=== PATIENT | female | born 1955 | race Caucasian/White ===

== ENCOUNTER 2018-11-18 09:56 | Outpatient (CLI) | payer BC, SELFPAY ==
[2018-11-18 10:41] LABS: CREATININE 0.98 mg/dL (0.55-1.02); Glucose 126 mg/dL (70-100); Potassium 3.9 mmol/L (3.5-5.1)
== END 2018-11-18 10:16 ==
PROVIDERS: PCP Family Medicine; Visit Provider Family Medicine
DX: I10 Essential (primary) hypertension (principal); E11.9 Type 2 diabetes mellitus without complications
CPT/HCPCS: 36415; 82947; 82565; 84132

== ENCOUNTER 2018-11-21 10:16 | Outpatient (CLI) | payer BC, SELFPAY ==
[2018-11-21 13:35] LABS: Hemoglobin A1C 6.5 % (4.5-6.2)
== END 2018-11-21 10:36 ==
PROVIDERS: PCP Family Medicine; Visit Provider Family Medicine
DX: E74.39 Other disorders of intestinal carbohydrate absorption (principal)
CPT/HCPCS: 36415; 83036

== ENCOUNTER 2018-11-21 10:52 | Outpatient (REF) | payer BC, SELFPAY ==
--- NOTE | 2018-11-21 10:00 | PAPFT_PTH ---
PATIENT: Corie Wellington LOC: [facility] U#:[id number] AGE/SX: 63/F ROOM: RE11/21/[address]: Romario Prince MD : 1955 BED: DIS: 11/21/2018 SPEC #: [id number] RECD: 11/21/18 13:09 STATUS: AMADOU RERen #: [id number] TANVI: 11/21/18 10:[address]: Romario Prince DEPT: [facility] Cytology RECD BY: Odette Taylor Tissues: 1 - CX/ENDOCX FOR PAP SMEARS Procedures: PAP THIN PREP/UVM Screening HPV DNA PROBE Comments: [id number]
== END 2018-11-21 11:12 ==
LOC: LBN 10:52
PROVIDERS: PCP Family Medicine; Visit Provider Family Medicine
DX: Z12.4 Encounter for screening for malignant neoplasm of cervix (principal); Z11.51 Encounter for screening for human papillomavirus (HPV)
CPT/HCPCS: 88142; 87624

== ENCOUNTER 2018-11-30 11:37 | Outpatient (CLI) | payer BC, SELFPAY ==
--- NOTE | 2018-11-30 15:54 | DI.MAMMO_ITS ---
SYMPTOMS/DIAGNOSIS: SCREENING, Z12.31, ANNUAL PHYSICAL EXAM, Z00.00 MAMMOGRAMS: Mammograms were interpreted according to the usual protocol including computer analysis with CAD system, tomosynthesis and C view imaging. The breasts are of moderate density with fairly symmetrical distribution of fibroglandular tissue. No dominant mass or clumped microcalcification is identified in either breast. Current examination is compared with previous examinations including October 2016 and there has been no gross interval change in appearance in comparison with the previous studies. CONCLUSION: No specific evidence of malignancy at this time. Routine screening examinations are suggested at yearly intervals due to the family history of breast carcinoma. Category 1, breast density category B. MQSA ASSESSMENT OF FINDINGS: Negative. Category 1. Patient will receive a letter notifying them of these results. BI-RADS category B. There are scattered areas of fibroglandular density.
== END 2018-11-30 11:57 ==
PROVIDERS: PCP Family Medicine; Visit Provider Family Medicine
DX: Z00.00 Encounter for general adult medical examination without abnormal findings (principal); Z12.31 Encounter for screening mammogram for malignant neoplasm of breast; Z80.3 Family history of malignant neoplasm of breast
CPT/HCPCS: 77063; 77067

== ENCOUNTER 2019-04-10 06:58 | Day surgery (SDC) | payer BC, SELFPAY ==
--- NOTE | 2019-04-10 06:31 | W.COLOREPORT ---
Date of service: 04/10/19 Time of Service: 08:28 Colonoscopy Report Date of procedure: 04/10/19 Pre-op diagnosis general: Colon Cancer Screening, Family history of colon cancer Post-op diagnosis procedure note: same (and small ascending colon polyp, and diverticulosis) Procedure: Colonoscopy with polypectomy Surgeon: Izzy Francisco Anesthesia proc note operative: other (General/ ASA 3/Dmitri Shea CRNA) Estimated blood loss (mL): 2 Pathology: other (Ascending polyp) Complications: None Disposition: same day Indications: Mrs. Wellington is a pleasant 64 year old female who was seen in the office for a followup colonoscopy. Her last colonoscopy was in 2013 and was normal. She has a family history of colon cancer in her brother. Risks, benefits and complications have been reviewed. Complications include but are not limited to bleeding, pain, perforation, missed small lesion/polyp, sore throat, aspiration and adverse reaction to the medications. Questions were entertained and answered to their satisfaction and they wished to proceed. No guarantees were given or implied. Prep: Miralax/Dulcolax Procedure Start Time: :28 Procedure End Time: 08:36 Retraction Time: 15 minutes Findings: One small sessile polyp in the ascending colon and moderate diverticulosis of the descending and sigmoid colon Procedure Description: After informed consent was obtained the patient was taken to the procedure room and placed in a left decubitous position. Monitors were applied and a time out was done. The patients name, date of , procedure, allergies to medications and metal in their body was reviewed. The patient was then sedated. Once sedated and comfortable a rectal exam was done. External exam was normal. Internal exam revealed a normal sphincter tone and no palpable masses. The scope was then introduced and retro-flexed. No internal hemorrhoids, masses or polyps were identified. The scope was then advanced to the cecum without difficulty. The TI and appendiceal orifice were identified. The prep was adequate. The scope was then slowly retracted over 15 minutes back into the rectum. Polyps were removed with cold forceps in the ascending colon x1. There was moderate diverticulosis of the colon noted in the descending and sigmoid colon. The scope was removed and the patient was woken up and taken back to Same day surgery in stable condition. The patient tolerated the procedure well and there were no immediate complications. Follow up: The patient should follow up in 3-5 years unless they develop changes in bowel habits or other new gastrointestinal complaints.
--- NOTE | 2019-04-10 06:33 | W.PM.DSUDISC ---
Discharge Plan Disposition Patient Disposition: HOME Condition: Good Discharge Details Reason For Visit: Colonoscopy Attending Provider: Izzy Francisco Primary Care Provider: Romario Prince Home Meds and New Rx's Prescriptions: Continued magnesium oxide 400 mg capsule 400 mg PO DAILY RF: 0 amlodipine 5 mg tablet 5 mg PO DAILY Qty: 90 RF: 3 doxazosin 4 mg tablet 4 mg PO DAILY Qty: 90 RF: 3 doxazosin 2 mg tablet 2 mg PO DAILY Qty: 90 RF: 3 labetalol 100 mg tablet 100 mg PO BID Qty: 180 RF: 3 metformin 500 mg tablet 500 mg PO BID Qty: 180 RF: 3 lisinopril 20 mg tablet 20 mg PO DAILY Qty: 90 RF: 3 aspirin [Aspirin Low-Strength] 81 MG tablet,chewable 162 mg PO HS RF: 0 cholecalciferol (vitamin D3) 1,000 unit tablet 2,000 unit PO DAILY Qty: 200 RF: 4 sennosides-docusate sodium [Senna-S] 8.6-50 mg tablet 1 tab PO BID PRNRF: 0 Discontinued polyethylene glycol 3350 17 gram/dose powder 238 g PO ONCE Qty: 238 RF: 0 bisacodyl [Dulcolax (bisacodyl)] 5 mg tablet,delayed release (DR/EC) 5 mg PO ONCE Qty: 4 RF: 0 Discharge Instructions Instructions: Colonoscopy (DC), Diverticulosis (DC) Additional Instructions: Findings: One small polyp Diverticulosis Follow up: 3-5 years Please call if you develop: fevers >101.5 Nausea or Vomiting Abdominal pain that is not transient DAY SURGERY UNIT POST ENDOSCOPY INSTRUCTIONS 1. Because there will be medication in your system for the next 24 hours, you may feel a little sleepy. Your coordination will be affected. Therefore: a. Do not drive or operate dangerous equipment for 24 hours. b. Do not drink alcohol beverages for 24 hours (not even beer). c. Plan to go home and rest for the day. 2. Generally there are no restrictions on your activity after a day or so has gone by, but you may feel a bit fatigued for a few days. 3 After you arrive home you may have a light meal and return to a normal diet as you can tolerate it without feeling sick to your stomach. 4. After surgery, you may feel pain or discomfort. This should be only transient, but if it persists please contact your doctor. 5. If there are any questions regarding the findings of your procedure, please feel free to contact your doctor. 6. If you are unable to contact your doctor with a problem, contact the hospital at [phone]. 7. Continue all your regular medications unless directed otherwise. I understand the above instructions and have no questions. Signature of Patient or Responsible Adult Escort Date/Time Name of Responsible Adult Escort Signature of Nurse Date/Time Activity:: Activity as Tolerated Diet:: High Fiber diet Discharge Orders Discharge Orders: Discharge Order (Routine); Ordered 04/10/19 Ordered By: Izzy Francisco DS: Diagnosis Discharge Diagnosis (1) S/P colonoscopy: Status: Acute (2) Diverticulosis: Status: Acute
--- NOTE | 2019-04-10 07:19 | W.PM.HP.N ---
Date of service: 04/10/19 Time of Service: : Assessment and Plan Assessment and plan (1) Encounter for screening colonoscopy: Status: Acute Assessment and plan: P\\ Colonoscopy under sedation Risks, benefits and complications have been reviewed. Complications include but are not limited to bleeding, pain, perforation, missed small lesion/polyp, sore throat, aspiration and adverse reaction to the medications. Questions were entertained and answered to their satisfaction and they wished to proceed. No guarantees were given or implied. History of Present Illness Narrative: 63 y/o female with history of HTN, Type 2 DM and hypothyroidism presents for colonoscopy screening pre-op. Her last screening was in 2013, which was remarkable for sigmoid diverticulosis. She reports a family history of colon cancer in her brother. She reports changes in bowel habits to include diarrhea since starting Metformin a few days ago. She denies bloody or black tarry stools, abdominal pain, or constipation. She denies constitutional symptoms. Denies use of marijuana or any other recreational or illegal drugs. She denies chest pain, palpitations, dyspnea or dyspnea with exertion. She denies prior history or family history of adverse reactions or complications with anesthesia. No changes in her health since she was last seen Review of Systems Cardiovascular Cardiovascular: Denies chest pain, Denies chest pain at rest, Denies palpitations, Denies dyspnea and Denies dyspnea on exertion Respiratory Respiratory: Denies cough, Denies dyspnea and Denies dyspnea on exertion Endocrine Endocrine: Denies palpitations [facility] Medical History Benign essential hypertension (Active 01/06/13) Cerebrovascular disease (Active) Depression (Acute 01/12/13) Diabetes mellitus (Chronic) Eczema (Acute 01/12/13) Family history of malignant neoplasm of breast (Acute 09/03/14) Hypothyroidism (Acute 01/12/13) Lacunar infarction (Acute 01/12/13) Malignant hypertension (Inactive 01/12/13) hypertensive encephalopathy Obesity (Acute 01/12/13) Continued weight loss encouraged Add Metformin to help with both sugar and weight Pancreatic cyst (Acute) stable on MRI at [facility] – [place], [place] Vitamin D deficiency (Acute 09/03/14) Surgical History MAXILLARY SINUS CYSTECTOMY (~1995) S/P colonoscopy (Acute ~04/10/19) 2014- diverticulosis Family History Mother Essential hypertension Heart disease Hyperlipidemia Neoplasm BREAST Stroke Father Essential hypertension Heart disease Hyperlipidemia Sister No problems noted. Sister Essential hypertension Neoplasm BREAST Sister Essential hypertension Brother Essential hypertension Heart disease Hyperlipidemia Neoplasm COLON Grandfather Heart disease Grandfather Heart disease Grandmother Heart disease Grandmother Heart disease Social History Smoking/Tobacco Use Status: Never Drug use: Never Meds Home Medications and Allergies Home Medications Medication Instructions Recorded Confirmed Type aspirin [Aspirin Low-Strength] 162 mg PO HS tab-cap 06/14/13 02/23/19 History cholecalciferol (vitamin D3) 1,000 2,000 unit PO DAILY #200 tab-cap 08/25/18 02/23/19 Rx unit (25 mcg) tablet amlodipine 5 mg tablet 5 mg PO DAILY #90 tab 11/21/18 02/23/19 Rx doxazosin 2 mg tablet 2 mg PO DAILY #90 tab 11/21/18 02/23/19 Rx doxazosin 4 mg tablet 4 mg PO DAILY #90 tab 11/21/18 02/23/19 Rx labetalol 100 mg tablet 100 mg PO BID #180 tab 11/21/18 02/23/19 Rx magnesium oxide 400 mg PO DAILY cap 11/21/18 02/23/19 History metformin 500 mg tablet 500 mg PO BID #180 tab 11/21/18 02/23/19 Rx lisinopril 20 mg tablet 20 mg PO DAILY #90 tab 02/20/19 02/23/19 Rx bisacodyl 5 mg tablet,delayed 5 mg PO ONCE #4 tab 02/23/19 02/23/19 Rx release polyethylene glycol 3350 17 238 g PO ONCE #238 gm 02/23/19 02/23/19 Rx gram/dose oral powder sennosides 8.6 mg-docusate sodium 1 tab PO BID PRN 02/23/19 02/23/19 History 50 mg tablet Allergies Allergy/AdvReac Type Severity Reaction Status Date / Time Sulfa (Sulfonamide Allergy Unknown Verified 02/23/19 09:08 Antibiotics) Exam HENKY Head: normocephalic and atraumatic Resp Effort & Inspection: normal respiratory effort Auscultation: clear to auscultation bilaterally Cardio Rate: regular rate Rhythm: regular rhythm Heart Sounds: no gallops, no murmurs and no rubs GI Inspection: normal to inspection Palpation: soft and no hepatosplenomegaly
[2019-04-10 07:23] VITALS: BP 165/101; PULSE 89; RESP 16; TEMP 36.5; O2SAT 99
[2019-04-10] MEDS: Lactated Ringers 1,000 ML 80 ML IV (07:58)
--- NOTE | 2019-04-10 08:40 | BOWEL_PTH ---
PATIENT: Corie Wellington LOC: [facility] U#:[id number] AGE/SX: 64/F ROOM: RE04/10/[address]: Izzy Francisco MD : 1955 BED: DIS: 04/10/2019 SPEC #: [id number] RECD: 04/10/19 12:46 STATUS: AMADOU REQ #: [id number] TANVI: 04/10/19 08:[address]: Izzy Francisco DEPT: Surgical Specimen RECD BY: Odette Taylor ENTERED: 04/10/19 12:46 SP TYPE: Bowel OTHR DR: Romario Prince MD Tissues: 1 - BIOPSY BOWEL Procedures: GROSS AND MICRO LEVEL 4 Comments: [id number]
[2019-04-10 09:27] VITALS: BP 125/63; PULSE 65; RESP 16; TEMP 36.6; O2SAT 96
== END 2019-04-10 09:55 | disposition home or self-care (01) ==
LOC: SUR 06:58
PROVIDERS: PCP Family Medicine; Visit Provider Surgery
PROC: 0DJD8ZZ Inspection of Lower Intestinal Tract, Via Natural or Artificial Opening Endoscopic (ICD-10-PCS; CPT 45378; principal; 2019-04-10 08:30)
DX: Z12.11 Encounter for screening for malignant neoplasm of colon (principal); Z80.0 Family history of malignant neoplasm of digestive organs; D12.2 Benign neoplasm of ascending colon; K57.30 Diverticulosis of large intestine without perforation or abscess without bleeding; I10 Essential (primary) hypertension; E11.9 Type 2 diabetes mellitus without complications
CPT/HCPCS: 45380; 88305; NC

== ENCOUNTER 2019-07-31 08:22 | Outpatient (CLI) | payer BC, SELFPAY ==
[2019-07-31 10:43] LABS: Calculated LDL 145 mg/dL; Cholesterol 221 mg/dL (<200); HDL Cholesterol 60 mg/dL (40-60); Triglyceride 80 mg/dL (<150)
[2019-07-31 14:40] LABS: Hemoglobin A1C 6.2 % (3.8-5.6)
== END 2019-07-31 08:42 ==
PROVIDERS: PCP Family Medicine; Visit Provider Family Medicine
DX: Z00.00 Encounter for general adult medical examination without abnormal findings (principal); Z11.9 Encounter for screening for infectious and parasitic diseases, unspecified; Z13.220 Encounter for screening for lipoid disorders
CPT/HCPCS: 36415; 80061; 83036

== ENCOUNTER 2021-07-14 20:47 | Outpatient (REF) | payer OTHER, SELFPAY ==
[2021-07-14 22:20] LABS: COMMENT (LAB VIEW ONLY) 231.08 mg/dL; Microalb ug/mg Crea 6.2 ug/mg Cr
[2021-07-14 22:29] LABS: ALT 23 U/L (14-59); AST 9 U/L (15-37); Albumin 3.9 g/dL (3.4-5.0); Alkaline Phosphatase 79 U/L (46-116); Anion Gap 8.5 mmol/L (3-11); BUN 18 mg/dL (7-18); Bilirubin, Total 0.5 mg/dL (0.2-1.0); CO2 28.5 mmol/L (21.0-32.0); CREATININE 0.9 mg/dL (0.55-1.02); Calcium 9.1 mg/dL (8.5-10.1); Calculated LDL 144 mg/dL (<100); Chloride 104 mmol/L (98-107); Cholesterol 223 mg/dL (<200); Glucose 113 mg/dL (74-106); HDL Cholesterol 56 mg/dL (40-60); Potassium 4.5 mmol/L (3.5-5.1); Sodium 141 mmol/L (136-145); TSH (W/Ref FT4) 2.94 uIU/mL (0.36-3.74); Total Protein 6.6 g/dL (6.4-8.2); Triglyceride 115 mg/dL (<150)
[2021-07-14 22:46] LABS: Hemoglobin A1C 6.4 % (<5.7)
== END 2021-07-14 20:48 | disposition home or self-care (01) ==
LOC: LBN 20:47
PROVIDERS: PCP Family Medicine; Visit Provider Family Medicine
DX: I10 Essential (primary) hypertension (principal); E11.9 Type 2 diabetes mellitus without complications
CPT/HCPCS: 80053; 80061; 82043; 82570; 83036; 84443

== ENCOUNTER 2021-10-07 01:45 | Outpatient (CLI) | payer OTHER, SELFPAY ==
--- NOTE | 2021-10-07 06:45 | DI.MAMMO_ITS ---
Exam(s) MAMMO SCREENING EXAM: MAMMO SCREENING CLINICAL HISTORY: screening,z12.39. TECHNIQUE: Bilateral full field digital CC and MLO mammographic images were obtained with 3D tomosyn thesis and utilizing computer aided detection (CAD). COMPARISON: Prior mammograms were reviewed, the most recent being November 2018. FINDINGS: There has been no significant change in the appearance and distribution of the fibroglandular tissue. Asymmetric density located centrally in the left breast on the CC view is benign-appearing on 3D imag ing and unchanged from prior studies. Benign-appearing nodule in right breast is unchanged from prior studies most probably a benign intram ammary lymph node. No new spiculated masses nor malignant-appearing microcalcification groups in either breast. There is no significant architectural distortion nor skin thickening-retraction. IMPRESSION: No radiographic evidence of malignancy. BI-RADS Category 1 - Negative Breast Density - Category B - Scattered areas of fibroglandular density Breast density Category C or D implies that the patient has dense breast tissue. Dense breast tissue can make it harder to find cancer on a mammogram. Dense breast tissue is also associated with an incr eased risk of breast cancer. This information about the result of the mammogram report was provided to the patient to raise their awareness. Use this report when you speak with the patient about their risks for breast cancer, which includes their family history. At that time, you may recommend additional screening tests (Ultrasoun d or MRI) as these tests may add significant information. A negative radiographic report should not delay biopsy if a dominant or clinically suspicious mass is present. Up to ten percent of cancers are not identified on mammography. A negative report may reinforce clinical impression. Adenosis and dense breasts may obscure an underlying neoplasm. False positive reports average 6 to 10%. Patient will receive a letter notifying them of these results.
== END 2021-10-07 02:05 ==
PROVIDERS: PCP Family Medicine; Visit Provider Family Medicine
DX: Z12.31 Encounter for screening mammogram for malignant neoplasm of breast (principal)
CPT/HCPCS: 77063; 77067

== ENCOUNTER 2022-07-28 10:17 | Outpatient (CLI) | payer OTHER, SELFPAY ==
[2022-07-28 12:39] LABS: ALT 23 U/L (14-59); AST 14 U/L (15-37); Albumin 3.7 g/dL (3.4-5.0); Alkaline Phosphatase 83 U/L (46-116); Bilirubin, Direct 0.1 mg/dL (0.0-0.2); Bilirubin, Total 0.7 mg/dL (0.2-1.0); Calculated LDL 145 mg/dL (<100); Cholesterol 227 mg/dL (<200); Estimated GFR 62.52 (mL/min/1.73m2); HDL Cholesterol 58 mg/dL (40-60); Potassium 4.7 mmol/L (3.5-5.1); Total Protein 7.3 g/dL (6.4-8.2); Triglyceride 122 mg/dL (<150)
== END 2022-07-28 10:18 | disposition home or self-care (01) ==
LOC: LOS 10:18
PROVIDERS: PCP Family Medicine; Referring Provider Family Medicine; Visit Provider Family Medicine
DX: I10 Essential (primary) hypertension (principal); E78.5 Hyperlipidemia, unspecified; G72.89 Other specified myopathies
CPT/HCPCS: 36415; 80061; 80076; 82565; 84132

== ENCOUNTER 2023-01-27 14:22 | Outpatient (REF) | payer OTHER, SELFPAY ==
[2023-01-27 14:23] LABS: COMMENT (LAB VIEW ONLY) 302.69 mg/dL; Microalb ug/mg Crea 3.5 ug/mg Cr
== END 2023-01-27 14:23 | disposition home or self-care (01) ==
LOC: LBN 14:22
PROVIDERS: PCP Family Medicine; Visit Provider Family Medicine
DX: E11.9 Type 2 diabetes mellitus without complications (principal)
CPT/HCPCS: 82043; 82570

== ENCOUNTER 2023-09-08 09:05 | Outpatient (CLI) | payer OTHER, SELFPAY ==
[2023-09-08 12:40] LABS: Creatine Kinase 64 U/L (26-192); Potassium 4.5 mmol/L (3.5-5.1)
[2023-09-08 13:00] LABS: Calculated LDL 149 mg/dL (<100); Cholesterol 233 mg/dL (<200); HDL Cholesterol 58 mg/dL (40-60); Triglyceride 134 mg/dL (<150)
== END 2023-09-08 09:06 | disposition home or self-care (01) ==
LOC: LOS 09:05
PROVIDERS: PCP Family Medicine; Referring Provider Family Medicine; Visit Provider Family Medicine
DX: G72.89 Other specified myopathies (principal); I10 Essential (primary) hypertension; E78.5 Hyperlipidemia, unspecified
CPT/HCPCS: 36415; 80061; 82550; 84132

== ENCOUNTER → 2023-10-04 02:48 | Outpatient (CLI) | payer OTHER, SELFPAY ==
--- NOTE | 2023-10-04 06:15 | DI.US_ITS ---
APPROVED REPORT EXAM: Comprehensive 2D, Doppler, and color-flow Echocardiogram Patient Location: Out-Patient Sales And Service Agent: Martha Krause RDCS (AE) Indications: Reassess aortic stenosis, Dilated ascending arota, HTN Other Information Study Quality: Adequate Conclusion Mild concentric left ventricular hypertrophy. Ejection fraction is 60%. Wall motion is normal. Vania stolic function is normal for age Normal right ventricular size and function Both atria are normal in size Aortic valve calcified. There is moderate aortic stenosis. Peak gradient is 41, mean 23 mm Hg. calc ulated aortic valve area is 1.2 cm2. There is trace aortic regurgitation Mitral annular calcification, mild mitral regurgitation Ascending aorta measures 3.85 cm Wall motion Left Ventricle The left ventricle is normal size. The left ventricular systolic function is normal. The left ventric ular ejection fraction is within the normal range. Mild concentric left ventricular hypertrophy. Ther e is normal LV segmental wall motion. Left ventricular filling pattern is normal for age. There is no ventricular septal defect visualized. LVEF is 60%. Right Ventricle The right ventricle is normal size. The right ventricular systolic function is normal. Atria The left atrium size is normal. The right atrium size is normal. The interatrial septum is intact wit h no evidence for an atrial septal defect. Aortic Valve Aortic valve is calcified. Number of aortic valve leaflets could not be assessed. Moderate aortic jose maria nosis. Peak aortic valve gradient is 41.43_mmHg. Highest mean aortic valve gradient is 22.78mmHg. Solomon culated EREN by the continuity equation is 1.2_cm2. Trace aortic regurgitation. Mitral Valve Mild mitral annular calcification. No evidence of mitral valve stenosis. Mild mitral regurgitation. Tricuspid Valve The tricuspid valve is normal in structure. There is no tricuspid valve stenosis. Trace tricuspid reg urgitation. Unable to assess PA pressure. Pulmonic Valve The pulmonary valve is normal in structure. There is no pulmonic valvular stenosis. There is no pulmo james valvular regurgitation. Great Vessels The aortic root is normal in size. The ascending aorta is mildly dilated. Aortic arch is normal in ca liber. IVC is normal in size and collapses >50% with inspiration. Pericardium There is no pericardial effusion. 2D Dimensions IVSD d PLAX 1.20 cm F: 0.6-1.0 Ao Root d 3.18 cm F: 2.7 - 3.3 LVPW d PLAX 1.21 cm F: 0.6 - 1.0 Ao Asc Diam d 3.85 cm F: 2.3 - 3.1 LVID d PLAX 4.33 cm F: 3.8 - 5.2 LVDs 2.98 cm F: 2.2 - 3.5 LV EF Teichholz 59.1 % FS 31.09 % LV EDV (Teich) 84.5 mL LV ESV (Teich) 34.6 mL M-Mode TAPSE 2.15 cm (M/F) >1.7 Auto EF LV EDV A4C 97.7 mL LV EDV A2C 95.4 mL LV EDV BP 98.7 mL LV ESV A4C 41.8 mL LV ESV A2C 40.6 mL LV ESV BP 41.2 mL LVEF(%) A4C 57.2 % LVEF(%) A2C 57.5 % LVEF(%) BP 58.2 % LV SV A4C 55.9 ml LV SV A2C 54.8 ml LV SV BP 57.4 ml LV CO A4C 3.0 L/min LV CO A2C 3.4 L/min LV CO BP 3.2 L/min HR A4C 54.05 BPM HR A2C 62.72 BPM LV EDV Index (BP) LV Strain Long Pk Overal Avg (s) 16.00 RV Strain Global Peak Long. Strain A4C 19.88 Global Peak Long. Strain A4C FW 24.68 LA Volume LA Length A4C 4.8 cm LA Length A2C 4.9 cm LA Area A4C s 17.39 cm2 LA Area A2C s 15.51 cm2 LA Vol A4C A-L 53.42 mL LA Vol A2C A-L 41.58 mL LA Vol Biplane A-L 47.6 mL LA Vol/BSA A4C A-L LA Vol/BSA A2C A-L LA Vol/BSA BP A-L 23.0 mL/m2 LA Vol A4C MOD 46.0 mL LA Vol A2C MOD 38.5 mL LA Vol BP MOD 42.5 mL RA Volume RA Area A4C 10.0 cm2 RA ESV A4C (A-L) 20.5mL RA Vol/BSA A4C A-L RA Length A4C 4.1 cm RA ESV A4C (MOD) 20.0mL LV Diastology MV E' medial 0.062 (>0.07 m/s) MV E Vmax 1.12 (0.4-1.3 m/s) MV E/E' MED 17.99 (<14) MV A Vmax 1.30 (0.4-1.3 m/s) MV E' lateral 0.087 (>0.1 m/s) E/A Ratio 0.9 MV E/E' LAT 12.85 (<14) MV E' Average 0.075 m/s MV E/E'(average) 14.99 Aortic Valve AoV Vmax 3.22 m/s LVOT Vmax 1.21 m/s AoV Peak Grad 52.8 mmHg LVOT Peak Grad 5.9 mmHg AoV Area (Vmax) 1.18 cm2 LVOT VTI 0.293 m AoV VTI 0.769 m LVOT Mean Grad 3.6 mmHg AoV Mean Jordy. 2.19 m/s LVOT SV 91.44 mL AoV Mean Grad 22.8 mmHg LVOT Diam s 1.95 cm AoV Area (VTI) 1.19 cm2 AV Regurg Peak Gr. 64.25 mmHg Velocity Ratio 0.38 AR Decel Baker 0.9m/sec2 AR DT 4288 msec AR PHT 1243 msec AR Vmax 4.01 m/s Mitral Valve MV DT 304 (160-240 msec) MV Vmax TIPS 1.33 m/s MV Mean Grad 2.9 (<2mmHg) MV VTI 0.467 m Pulmonary Valve PV Vmax 1.15 (0.5-1.5 m/s) RVOT Vmax 0.93 m/s PV Peak Grad 5.3 mmHg RVOT Peak Gr. 3.5 mmHg PV Mean Jordy 0.88 m/s RVOT VTI 0.211 m PV Mean Grad 3.4 mmHg RVOT Mean Gr. 2.1 mmHg Tricuspid Valve RA Pressure 3.00 mmHg TV S' 0.13 m/s
== END ==
PROVIDERS: PCP Family Medicine; Visit Provider Family Medicine
DX: Z12.31 Encounter for screening mammogram for malignant neoplasm of breast (principal); I10 Essential (primary) hypertension
CPT/HCPCS: 77063; 77067; 93306

== ENCOUNTER 2024-03-08 13:49 | Outpatient (REF) | payer OTHER, SELFPAY ==
[2024-03-08 18:45] LABS: COMMENT (LAB VIEW ONLY) 197.01 mg/dL; Microalb ug/mg Crea 6.9 ug/mg Cr
== END 2024-03-08 13:50 | disposition home or self-care (01) ==
LOC: LBN 13:49
PROVIDERS: PCP Family Medicine; Visit Provider Family Medicine
DX: E11.9 Type 2 diabetes mellitus without complications (principal); E66.9 Obesity, unspecified
CPT/HCPCS: 82043; 82570

== ENCOUNTER 2024-04-09 09:52 | Day surgery (SDC) | payer OTHER, SELFPAY ==
--- NOTE | 2024-04-08 07:15 | W.PM.DSUDISC ---
Date of service: 04/09/24 Time of Service: 11:51 Discharge Plan Disposition Patient Disposition: Home Condition: Good Discharge Details Reason For Visit: screening colonoscopy Attending Provider: Keven Trejo Primary Care Provider: Romario Prince Home Meds and New Rx's Prescriptions: Continued magnesium oxide 400 mg capsule 400 mg PO DAILY cholecalciferol (vitamin D3) 1,000 unit tablet 2,000 unit PO DAILY Qty: 200 4RF Rx Instructions: take 2 pills daily atorvastatin 10 mg tablet 10 mg PO DAILY Qty: 90 3RF Jardiance 10 mg tablet 10 mg PO DAILY Qty: 90 3RF doxazosin 2 mg tablet 2 mg PO DAILY Qty: 90 3RF Rx Instructions: take with a 4 mg tab each day labetalol 100 mg tablet 100 mg PO BID Qty: 180 3RF amlodipine 5 mg tablet 5 mg PO DAILY Qty: 90 3RF lisinopril 30 mg tablet See Rx Instructions .ROUTE .COMPLEX Qty: 90 3RF Dose Instruction: TAKE ONE TABLET BY MOUTH ONE TIME DAILY Rx Instructions: TAKE ONE TABLET BY MOUTH ONE TIME DAILY doxazosin 4 mg tablet 4 mg PO DAILY Qty: 90 3RF Rx Instructions: take with a 2 mg tab each day metformin 500 mg tablet 500 mg PO BID Qty: 180 3RF Discontinued bisacodyl [Dulcolax (bisacodyl)] 5 mg tablet,delayed release (DR/EC) 5 mg PO ONCE Qty: 4 0RF Rx Instructions: Take per colonoscopy instructions provided by ordering providers office polyethylene glycol 3350 17 gram/dose powder 17 g PO ONCE Qty: 238 0RF Rx Instructions: Take per colonoscopy instructions provided by ordering providers office Discharge Instructions Instructions: Colon polyps, Diverticulosis Additional Instructions: Corie, we are able to complete your colonoscopy today without any difficulty at all. Hopefully you are comfortable during the procedure. I did find and remove a single polyp today. Similar to your previous experience, this will be sent off for testing, as sometimes the nature of polyps influences the timing of the next colonoscopy. Incidentally, you also have some diverticulosis. This was noted on your previous colonoscopy as well. I hope it never bothers you, but I will certainly attach some information here regarding basic approaches to diverticular disease. If you have any questions at all, please do not hesitate to call or ask at any point. 1. If tolerated, consume a soft, low fiber diet for 1-2 days. 2[address] Do not drive, drink alcohol, operate machinery, make critical decisions, or do activities that require coordination or balance for 24 hours. 3. Because air was put into your colon during the procedure, expelling air from your rectum (passing gas or farting) is normal. 4. You may not have a bowel movement for 1-3 days because of the colonoscopy prep. This is normal. 5. Go directly to the emergency room if you notice any of the following: Develop chills (warm to touch), or if you have a thermometer and your temperature is above 101 Difficulty breathing or difficultly swallowing Persistent vomiting Severe abdominal pain, other than gas cramps Severe chest pain Black, tarry stools Any bleeding ? exceeding one tablespoon 6. Call your physician if the site where your intravenous was started becomes red, swollen, painful, and warm to touch. 7. Your physician has reviewed your pre-procedure medications. Please continue to take those medications as previously ordered. You will be given specific information/education regarding any changes to your medications before leaving. Activity:: Activity as Tolerated Diet:: As Tolerated Discharge Orders Discharge Orders: Discharge Order (Routine); Ordered 04/08/24 Ordered By: Keven Trejo DS: Diagnosis Discharge Diagnosis (1) Encounter for screening colonoscopy: Status: Acute Asessment and Plan: Follow-up on polypectomy results
--- NOTE | 2024-04-08 07:17 | W.COLOREPORT ---
Date of service: 04/09/24 Time of Service: 11:53 Colonoscopy Report Date of procedure: 04/09/24 Pre-op diagnosis general: screening colonoscopy Post-op diagnosis procedure note: other (Diverticulosis, colon polyp) Procedure: colonoscopy with polypectomy Surgeon: Keven Trejo Anesthesia Type: General:No Airway Estimated blood loss (mL): 5 Pathology: other (0.5 cm pedunculated polyp at 20 cm) Complications: None Disposition: same day Indications: Croie is a 69 year old woman with a history of sessile serrated adenoma as well as a family history of colon cancer who needs her next screening colonoscopy Prep: Miralax/Dulcolax Procedure Start Time: 11:10 Procedure End Time: 11:23 Retraction Time: 9 Findings: Sigmoid diverticulosis, 0.5 cm polyp at 20 cm Procedure Description: After the induction of anesthesia, and with the patient in left lateral decubitus position, I began by performing an external anorectal exam.? Perineum and skin were normal, as was the anal verge.? There was no evidence of external hemorrhoids.? Next, I performed a digital rectal exam.? I did not appreciate any abnormal findings.? Next, I advanced a colonoscope into the rectal vault.? I performed retroflexion.? This appeared normal.? Using insufflation, I then advanced the colonoscope beyond the rectal folds and into the sigmoid colon before advancing towards the cecum.? The scope was noted to be in the cecum by identification of the ileocecal valve and appendiceal orifice.? I then began withdrawing the colonoscope using repeated irrigation as necessary for full evaluation of the colonic mucosa. There was left-sided and sigmoid diverticulosis. Around 20 cm from the anal verge I identified a 0.5 cm polyp. ?It appeared pedunculated in character. ?I was able to remove this with a cold snare polypectomy. ?I examined the site, and there was minimal bleeding. ?Once this was completed, I continued to withdraw the scope and examine the remainder of the colonic mucosa.?Once the scope was withdrawn to the level of the rectum, great care was taken to examine portions of the rectal folds.? Finally, the scope was withdrawn and the patient was brought to the same-day surgery recovery unit as the anesthetic wore off. ?The findings and instructions were shared with the patient prior to discharge. [place] Bowel Prep [place] Bowel Prep Right Colon: 3 Left Colon: 3 Transverse Colon: 3 Total Score: 9
[2024-04-09 10:17] VITALS: BP 124/79; PULSE 109; RESP 20; TEMP 36.4; O2SAT 98
[2024-04-09] MEDS: Lactated Ringers 1,000 ML 80 ML IV (10:30)
--- NOTE | 2024-04-09 10:43 | W.ANESPRE ---
General Info Date of Service Date Performed: 04/09/24 Height: 5 ft 0.75 in Weight: 116.573 kg Body Mass Index (BMI): 48.9 Surgical Procedure: Operation Date: 04/09/24 11:20 Proposed Procedure Side Surgeon ky Trejo MD Meds Allergies and Home Medications Allergies Allergy/AdvReac Type Severity Reaction Status Date / Time Sulfa (Sulfonamide Allergy Unknown Verified 07/28/22 10:00 Antibiotics) Home Medication ?Medication ?Instructions ?Recorded cholecalciferol (vitamin D3) 25 2,000 unit PO DAILY #200 tab-caps 08/25/18 mcg (1,000 unit) tablet magnesium oxide 400 mg PO DAILY 11/21/18 atorvastatin 10 mg tablet 10 mg PO DAILY #90 tabs 09/08/23 empagliflozin 10 mg tablet 10 mg PO DAILY #90 tabs 11/30/23 (Jardiance) amlodipine 5 mg tablet 5 mg PO DAILY #90 tabs 12/31/23 doxazosin 2 mg tablet 2 mg PO DAILY #90 tabs 12/31/23 doxazosin 4 mg tablet 4 mg PO DAILY #90 tabs 12/31/23 labetalol 100 mg tablet 100 mg PO BID #180 tabs 12/31/23 lisinopril 30 mg tablet See Rx Instructions .Route 12/31/23 .COMPLEX #90 tabs metformin 500 mg tablet 500 mg PO BID #180 tabs 03/29/24 Current Visit Medications: Current Medications Generic Name Dose Route Start Last Admin Trade Name Freq PRN Reason Stop Dose Admin Ringer's Solution 1,000 mls @ 80 mls/hr 04/09/24 06:00 04/09/24 10:30 IV 05/06/24 23:59 80 mls/hr INFUSION SUHAIL Administration IV Miscellaneous Supplies 1 each 04/09/24 06:00 Iv Access IV 05/06/24 23:59 DIRECTED SUHAIL Ondansetron HCl 4 mg 04/08/24 07:18 Ondansetron 4 Mg/2 Ml Vial IVP 05/08/24 07:17 Q4H PRN PRN Nausea / Vomiting Sodium Chloride 0 ml 04/09/24 06:00 Normal Saline Flush 10 Ml Syr IV 05/06/24 23:59 PRN PRN Sodium Chloride 0 ml 04/09/24 06:00 Normal Saline 10 Ml Vial IJ 05/06/24 23:59 DIRECTED PRN Sterile Water 0 ml 04/09/24 06:00 Water,Injection,Sterile 10 Ml Vial IJ 05/06/24 23:59 DIRECTED PRN PFSH Active Problems Active Problems: Problem Status Onset Code Encounter for screening colonoscopy Acute Z12.11 Hyperlipidemia associated with type 2 diabetes mellitus Acute E11.69, E78.5 Knee pain, bilateral Acute M25.561, M25.562 Heart murmur Acute R01.1 Essential hypertension Acute I10 Cerebrovascular disease Active I67.9 Vitamin D deficiency Acute 09/03/14 E55.9 Obesity Acute 01/12/13 E66.9 Pancreatic cyst Acute K86.2 Lacunar infarction Acute 01/12/13 I63.81 Hypothyroidism Acute 01/12/13 E03.9 Eczema Acute 01/12/13 L30.9 Family history of malignant neoplasm of breast Acute 09/03/14 Z80.3 Depression Acute 01/12/13 F32.9 Diabetes mellitus Chronic E11.9 Medical History Medical History (Updated 04/08/24 @ 07:15 by Keven Trejo MD) Malignant hypertension (01/12/13) hypertensive encephalopathy Surgical History Surgical History (Updated 04/09/24 @ 10:16 by Sugey Waterman RN) History of colonoscopy MAXILLARY SINUS CYSTECTOMY (~1995) Tobacco Smoking/Tobacco Use Status: Never Passive smoking exposure: Yes Alcohol Alcohol Intake: current Alcohol intake frequency: holidays/special occasions only Alcohol type: wine Substance Use Substance use: Never Substance use type: does not use Vital Signs and Lab Results Vital Signs Most Recent Vital Signs in EMR: Most Recent Vital Signs Temp Pulse Resp BP Pulse Ox 36.4 C L 109 H 20 124/79 98 04/09/24 10:17 04/09/24 10:17 04/09/24 10:17 04/09/24 10:17 04/09/24 10:17 Point of Care Results Point of Care Results: Finger Stick Blood Glucose 124 04/09/24 10:14 Lab Results Blood Type / Crossmatch: No Data to Display Complete Blood Count: No Data to Display Complete Metabolic Panel: No Data to Display Liver Function Panel: No Data to Display Coagulation Panel: No Data to Display Cardiac Panel: No Data to Display Arterial Blood Gas: No Data to Display Venous Blood Gas: No Data to Display Pancreas Panel: No Data to Display Thyroid Panel: No Data to Display Infectious Disease: No Data to Display Blood Cultures: No Data to Display Toxicology Panel: No Data to Display Imaging and Studies Imaging and Studies Study information below may be from another EMR and interpreted by another provider. Please see original notes in EMR for more complete details. Echocardiogram Summary: 10/04/23 Conclusion Mild concentric left ventricular hypertrophy. Ejection fraction is 60%. Wall motion is normal. Diastolic function is normal for age Normal right ventricular size and function Both atria are normal in size Aortic valve calcified. There is moderate aortic stenosis. Peak gradient is 41, mean 23 mm Hg. calculated aortic valve area is 1.2 cm2. There is trace aortic regurgitation Mitral annular calcification, mild mitral regurgitation Ascending aorta measures 3.85 cm Anesthesia Assessment and Plan Anesthesia History Personal History: No History of Anesthesia Complications Family History: No Family History of Anesthesia Complications Exercise Tolerance Exercise Tolerance: Metabolic Equivalents<4 Pertinent Negatives Pertinent Negatives: No Symptoms of GERD, No Major Cardiovascular Symptoms or Complaints and No Major Pulmonary Symptoms or Complaints Cardiac & Pulmonary Exam Cardiac Exam: Normal S1/S2 Heart Sounds and Heart Murmur Present Pulmonary Exam: Clear Bilateral Breath Sounds Implantable Cardiac Device Does patient have a Pacemaker or an ICD?: No Airway Exam Known Difficult Airway: No Mallampati Class: 2 Mouth Opening: Normal (> 3cm) Thyromental Distance: Greater than 3 cm Neck Range of Motion: Full ROM Neck Circumference: Thick Teeth Condition: Normal Dentition ASA Classification ASA Score: ASA 3 Emergency Case?: No NPO Status NPO Status: NPO Clears >2 hours, Solids >8 hours Anesthesia Plan Resuscitation Status: Full Code Anesthesia Technique: General Anesthesia Airway Planned: Natural Airway Monitors Used: Standard Monitors
[2024-04-09 10:50] VITALS: BMI 48.9
--- NOTE | 2024-04-09 11:22 | BOWEL_PTH ---
PATIENT: Corie Wellington LOC: [facility] U#:[id number] AGE/SX: 69/F ROOM: RE04/09/[address]: Keven Trejo MD : 1955 BED: DIS: 04/09/2024 SPEC #: [id number] RECD: 04/09/24 12:44 STATUS: AMADOU RE #: [id number] TANVI: 04/09/24 11:[address]: Keven Trejo DEPT: Surgical Specimen RECD BY: Odette Taylor ENTERED: 04/09/24 12:45 SP TYPE: Bowel OTHR DR: Romario Prince MD Tissues: 1 - BIOPSY BOWEL Procedures: GROSS AND MICRO LEVEL 4 Comments: [id number]
[2024-04-09 11:28] VITALS: BP 105/60; PULSE 77; RESP 20; TEMP 36.2; O2SAT 96
--- NOTE | 2024-04-09 11:52 | W.ANESPOSTOP ---
Postoperative Evaluation Date, Time and Location Date Performed: 04/09/24 Time Performed: 11:52 Patient Location: Day Surgery Unit Vital Signs Most Recent Imported Vital Signs: Most Recent Vital Signs Temp Pulse Resp BP Pulse Ox 36.2 C L 77 20 105/60 96 04/09/24 11:28 04/09/24 11:28 04/09/24 11:28 04/09/24 11:28 04/09/24 11:28 Pain Score Most Recent Pain Score: Most Recent Pain Score Pain Level 0 04/09/24 11:28 Assessment Mental Status: Awake (Alert & Oriented to Patient Baseline) Airway and Respiratory Function: Patent airway with normal (patient baseline) respiratory exam Cardiovascular Function: Hemodynamically Stable Hydration Status: Adequately Hydrated Nausea & Vomiting: No Nausea or Vomiting Pain: Pt. Denies Any Pain Peripheral Nerve Block: Patient did not receive a nerve block
[2024-04-09 11:55] VITALS: BP 122/64; PULSE 77; RESP 17; TEMP 36.2; O2SAT 97
== END 2024-04-09 12:15 | disposition home or self-care (01) ==
LOC: SUR 09:53
PROVIDERS: PCP Family Medicine; Visit Provider Surgery
PROC: 0DJD8ZZ Inspection of Lower Intestinal Tract, Via Natural or Artificial Opening Endoscopic (ICD-10-PCS; CPT 45378; principal; 2024-04-09 11:15)
DX: Z12.11 Encounter for screening for malignant neoplasm of colon (principal); D12.7 Benign neoplasm of rectosigmoid junction; K57.30 Diverticulosis of large intestine without perforation or abscess without bleeding
CPT/HCPCS: 45385; 88305; J2001; J2704

== ENCOUNTER 2024-09-13 09:44 | Outpatient (CLI) | payer OTHER, SELFPAY ==
[2024-09-13 13:44] LABS: Calculated LDL 82 mg/dL (<100); Cholesterol 162 mg/dL (<200); Estimated GFR 61.75 (mL/min/1.73m2); HDL Cholesterol 63 mg/dL (40-60); Triglyceride 88 mg/dL (<150)
[2024-09-13 19:11] LABS: HIV-1/2 Ag & Ab Screen Negative (Negative)
[2024-09-13 19:16] LABS: HBs Antibody, Quant <3.1 mIU/mL (See Note); Hep B Surface Ab Negative (See Note); Hepatitis B Core Antibody Negative (Negative); Hepatitis B Surface Antigen Negative (Negative)
[2024-09-13 19:18] LABS: Hepatitis C Ab w Rflx HCV PCR Negative (Negative)
== END 2024-09-13 09:45 | disposition home or self-care (01) ==
LOC: LOS 09:44
PROVIDERS: PCP Family Medicine; Referring Provider Family Medicine; Visit Provider Family Medicine
DX: I10 Essential (primary) hypertension (principal); Z11.59 Encounter for screening for other viral diseases; E78.5 Hyperlipidemia, unspecified; Z00.00 Encounter for general adult medical examination without abnormal findings
CPT/HCPCS: 36415; 80061; 86704; 86706; 86803; 87340; 87389; 82565

== ENCOUNTER 2024-11-08 00:33 | Outpatient (CLI) | payer OTHER, SELFPAY ==
--- NOTE | 2024-11-08 09:00 | DI.DEXA_ITS ---
Exam(s) XR DEXA BONE DENSITY W/WO CORNELIO EXAM: XR DEXA BONE DENSITY W/WO CORNELIO CLINICAL HISTORY: menopausal, Z78.0 TECHNIQUE: Map[employer] Horizon C densitometer analysis of left hip, lumbar spine and left forearm. Lat eral survey image of the thoracic and lumbar spine. COMPARISON: No exams were available for comparison FINDINGS: Lateral view of the thoracic and lumbar spine shows no evidence of compression fractures. Bone mineral density measurements of the lumbar spine correspond to a total T-score of 0.4, in the n ormal range. Bone mineral density measurements of the left hip correspond to a total T-score of 2.2. The femoral neck T-score is 0.3, in the normal range.. Theleft forearm bone mineral density measurements correspond to a T-score of the distal 3rd of 0.5, in the normal range.. IMPRESSION: Normal bone mineral density.
== END 2024-11-08 00:53 ==
LOC: DI 00:33
PROVIDERS: PCP Family Medicine; Visit Provider Family Medicine
DX: Z78.0 Asymptomatic menopausal state (principal); Z13.820 Encounter for screening for osteoporosis
CPT/HCPCS: 77080

== ENCOUNTER 2025-01-24 11:38 | Outpatient (CLI) | payer OTHER, SELFPAY ==
--- NOTE | 2025-01-24 11:30 | RT.EKG_ITS ---
APPROVED REPORT Exam: Resting ECG Reason for Exam: retinal artery occlusion Patient Location: O HR:76 bpm ECG Measurements Heart Rate 76 AXIS LA 166 P 41 QRSd 95 QRS 19 QT 404 T 99 QTc 455 Conclusion Sinus rhythm...normal P axis, V-rate 50- 99 Nonspecific T abnormalities, lateral leads...T <-0.10mV, I aVL V5 V6 Baseline wander in lead(s) V5
== END 2025-01-24 11:39 | disposition home or self-care (01) ==
LOC: DI.CM 11:39
PROVIDERS: PCP Family Medicine; Visit Provider Nurse Practitioner Family
DX: H34.9 Unspecified retinal vascular occlusion (principal)
CPT/HCPCS: 93010

== ENCOUNTER 2025-02-08 14:50 | Outpatient (RCR) | payer OTHER, SELFPAY ==
--- NOTE | 2025-02-12 09:34 | W.HOLTRPT ---
Date of service: 02/12/25 Time of Service: 09:34 Holter Monitor Report Referring Provider:: Real Leon Indications:: Retinal artery occlusion Holter Monitor Note: This is a 48-hour Holter monitor. Rhythm throughout was sinus with an average heart rate of 73. Minimum was 51, maximum 132. There were 4 premature ventricular contractions. A total of 96 premature atrial contractions were recorded. There was no atrial fibrillation, no high-grade AV block, no pauses greater than 3 seconds. There are no patient symptoms
== END 2025-02-21 23:59 | disposition home or self-care (01) ==
LOC: CARDOPNVT 14:50
PROVIDERS: PCP Family Medicine; Visit Provider Internal Medicine Cardiovascular Disease
DX: I49.3 Ventricular premature depolarization (principal); H34.9 Unspecified retinal vascular occlusion; I49.1 Atrial premature depolarization
CPT/HCPCS: 93227; 93225; 93226

== ENCOUNTER 2025-03-19 03:09 | Outpatient (CLI) | payer OTHER, SELFPAY ==
[2025-03-19 18:02] LABS: COMMENT (LAB VIEW ONLY) 124.17 mg/dL; Microalb ug/mg Crea 5.6 ug/mg Cr
== END 2025-03-19 03:10 | disposition home or self-care (01) ==
LOC: LBO 03:09 → LBN 16:34
PROVIDERS: PCP Family Medicine; Visit Provider Family Medicine
DX: E11.9 Type 2 diabetes mellitus without complications (principal)
CPT/HCPCS: 82043; 82570